=== PATIENT | male | born 1980 | race Two or more races ===

== ENCOUNTER 2020-07-31 06:46 | Emergency (ER) | payer SELFPAY ==
[~2020-07-31] VITALS: Ht 160 cm; Wt 74.8 kg
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
[2020-07-31] MEDS ORDERED: HYDROCODONE/APAP 5/325MG TABLET ONE (07:01)
[2020-07-31] MEDS ORDERED: IBUPROFEN 600 MG TABLET ONE (07:01)
[2020-07-31] MEDS: IBUPROFEN 600 MG TABLET PO ONE (07:04)
[2020-07-31] MEDS: HYDROCODONE/APAP 5/325MG TABLET PO ONE (07:04)
--- NOTE | 2020-07-31 09:12 | NUR ---
Patient sts pain feels better. Ambulatory withs teady gait. No distress noted. Patient discharged to home in stable condition. Written and verbal after care instructions given. Patient verbalizes understanding of instruction.
[2020-07-31 09:14] VITALS: BP 127/72
== END 2020-07-31 09:15 | disposition home or self-care (01) ==
LOC: ER 06:49
DX: S29.012A Strain of muscle and tendon of back wall of thorax, initial encounter (principal); V49.49XA Driver injured in collision with other motor vehicles in traffic accident, initial encounter; Y93.89 Activity, other specified; Y92.488 Other paved roadways as the place of occurrence of the external cause; Y99.8 Other external cause status
CPT/HCPCS: 72128; 72131; 99285; A4217